=== PATIENT | male | born 1985 | race Caucasian/White ===

== ENCOUNTER 2018-03-30 16:07 | Emergency (ER) | payer SELFPAY ==
[2018-03-30 16:33] VITALS: BP 106/61
[2018-03-30] MEDS ORDERED: DOXYcycline CAP(*) 100 MG PO ONE (17:05)
--- NOTE | 2018-03-30 17:15 | UC ---
Bite Injury/Animal HPI - HPI Summary HPI Summary: 32 yo male with c/o tick bite. He has removed 2 ticks in the last 2 weeks, most recent was 2-3 days ago. He is very concerned about Lyme disease and requesting doxycycline. No recent rash, fever, MARIN, n/v. - History of Current Complaint Chief Complaint: UCSkin Stated Complaint: TICK BITE Time Seen by Provider: 03/30/18 16:55 Pain Intensity: 0 - Allergies/Home Medications Allergies/Adverse Reactions: Allergies Allergy/AdvReac Type Severity Reaction Status Date / Time No Known Allergies Allergy Verified 03/30/18 16:33 Home Medications: Home Medications NK [No Home Medications Reported] 03/30/18 [History Confirmed 03/30/18] PMH/Surg Hx/FS Hx/Imm Hx Previously Healthy: Yes - Surgical History Surgical History: None - Family History Known Family History: Positive: None - no Lyme disease - Social History Alcohol Use: Rare Substance Use Type: None Smoking Status (MU): Never Smoked Tobacco Review of Systems Constitutional: Negative Skin: Negative Eyes: Negative ENT: Negative Respiratory: Negative Cardiovascular: Negative Gastrointestinal: Negative Genitourinary: Negative Motor: Negative Neurovascular: Negative Musculoskeletal: Negative Neurological: Negative Psychological: Negative Is Patient Immunocompromised?: No All Other Systems Reviewed And Are Negative: Yes Physical Exam Triage Information Reviewed: Yes Appearance: Well-Appearing Vital Signs: Initial Vital Signs Temp 97.7 F 03/30/18 16:31 Pulse 64 03/30/18 16:31 Resp 18 03/30/18 16:31 BP 106/61 03/30/18 16:31 Pulse Ox 99 03/30/18 16:31 Vital Signs Reviewed: Yes ENT Exam: Normal Neck exam: Normal Respiratory Exam: Normal Cardiovascular Exam: Normal Abdominal Exam: Normal Musculoskeletal Exam: Normal Neurological Exam: Normal Psychological Exam: Normal Skin: Positive: Other - resolving pink papule over R flank area, no surrounding erythema or other rash Bite Injury Course/Dx - Course Course Of Treatment: This is a 32 yo male with recent tick bite requesting doxycycline. 200 mg dose dispensed. Discussed s/sx of Lyme disease and risk of transmission. - Differential Dx/Diagnosis Differential Diagnosis/HQI/PQRI: Cellulitis, Puncture, Other - Lyme disease Provider Diagnoses: Tick bite Discharge - Sign-Out/Discharge Documenting (check all that apply): Discharge/Admit/Transfer - Discharge Plan Condition: Stable Disposition: HOME Patient Education Materials: Lyme Disease (ED), Tick Bite (ED) Referrals: No Primary Care Phys,NOPCP [Primary Care Provider] - Additional Instructions: Monitor for signs of Lyme disease, your risk of infection is low - Billing Disposition and Condition Condition: STABLE Disposition: HOME
== END 2018-03-30 17:25 | disposition home or self-care (01) ==
LOC: UCEAST 16:07
DX: S30.861A Insect bite (nonvenomous) of abdominal wall, initial encounter (principal); W57.XXXA Bitten or stung by nonvenomous insect and other nonvenomous arthropods, initial encounter; Y93.9 Activity, unspecified; Y92.9 Unspecified place or not applicable
CPT/HCPCS: 99202; A9270-GY; G0463

== ENCOUNTER 2018-12-21 13:49 | Emergency (ER) | payer BC ==
[2018-12-21 14:46] LABS: ABS Basophils 0 10^3/ul (0-0.2); ABS Eosinophils 0.1 10^3/ul (0-0.6); ABS Lymphocytes 1.3 10^3/ul (1.0-4.8); ABS Monocytes 0.6 10^3/ul (0-0.8); ABS Neutrophils 7.5 10^3/ul (1.5-7.7); ABS Nucleated RBC 0 10^3/ul; Eosinophil % 1.1 %; Hematocrit 43 % (42-52); Hemoglobin 15.5 g/dl (14.0-18.0); Mean Corpuscular HGB Conc 36 g/dl (31-36); Mean Corpuscular Hemoglobin 32 pg (27-31); Mean Corpuscular Volume 90 fL (80-94); Mean Platelet Volume 7.5 fL (7.4-10.4); Nucleated Red Blood Cells % 0; Platelet Count 215 10^3/ul (150-450); Red Blood Count 4.84 10^6/ul (4.00-5.40); Red Cell Distribution Width 13 % (10.5-15); White Blood Count 9.5 10^3/ul (3.5-10.8)
[2018-12-21 14:57] LABS: Albumin 4.5 g/dL (3.2-5.2); Albumin/Globulin Ratio 1.7 (1-3); BUN/Creatinine Ratio 18.8 (8-20); C Reactive Protein 11.57 mg/L (<8.01); Calcium 9.4 mg/dL (8.6-10.3); EGFR African American 133.1 (>60); Globulin 2.7 g/dL (2-4); Potassium 4.1 mmol/L (3.5-5.0); Total Bilirubin 0.7 mg/dL (0.2-1.0); Total Protein 7.2 g/dL (6.4-8.9)
[2018-12-21] MEDS ORDERED: NS 0.9% 1000 ML** 1,000 ML IV ONE (15:25)
--- NOTE | 2018-12-21 15:39 | ED ---
Abdominal Pain/Male - HPI Summary HPI Summary: This patient is a 33 year old male presenting to the emergency room with his with a cc of ABD pain that began last night. Since it began it has gotten worse and went from a diffuse pain to localized in RLQ. He rates the pain 3/10 and states it is accompanied by nausea. He denies vomiting and diarrhea. He has not hx of kidney stones and still has is appendix. He denies medical history. - History of Current Complaint Chief Complaint: EDAbdPain Stated Complaint: RT SIDED ABD PAIN Time Seen by Provider: 12/21/18 15:03 Hx Obtained From: Patient Onset/Duration: Lasting Days, Still Present Timing: Constant Severity Initially: Mild Severity Currently: Moderate Pain Intensity: 3 Location: Diffuse, Discrete At: RLQ Radiates: No Associated Signs And Symptoms: Positive: Nausea. Negative: Vomiting, Diarrhea - Allergies/Home Medications Allergies/Adverse Reactions: Allergies Allergy/AdvReac Type Severity Reaction Status Date / Time No Known Allergies Allergy Verified 03/30/18 16:33 PMH/Surg Hx/FS Hx/Imm Hx Endocrine/Hematology History: Denies: Hx Diabetes, Hx Anemia Cardiovascular History: Denies: Hx Atrial Fibrillation, Hx Cardiac Arrest, Hx Congenital Heart Disease, Hx Embolism Respiratory History: Denies: Hx Chronic Bronchitis, Hx Lung Cancer GI History: Denies: Hx Irritable Bowel History: Denies: Hx Acute Renal Failure, Hx Kidney Infection, Hx Kidney Stones Psychiatric History: Denies: Hx Inpatient Treatment Infectious Disease History: Yes Infectious Disease History: Reports: Traveled Outside the [place] in Last 30 Days - [place] - Family History Known Family History: Positive: None - no Lyme disease, Non-Contributory Negative: Respiratory Disease, Seizure Disorder - Social History Lives: With Family Alcohol Use: Rare Substance Use Type: Reports: Marijuana Substance Use Comment - Amount & Last Used: rarely Smoking Status (MU): Never Smoked Tobacco Review of Systems Negative: Fever Positive: Abdominal Pain, Nausea. Negative: Vomiting, Diarrhea All Other Systems Reviewed And Are Negative: Yes Physical Exam - Summary Physical Exam Summary: Appearance: Well appearing, no pain distress Skin: warm, dry, reflects adequate perfusion Head/face: normal Eyes: EOMI, KAILA ENT: normal Neck: supple, non-tender Respiratory: CTA, breath sounds present Cardiovascular: RRR, pulses symmetrical Abdomen: TTP in the RLQ, soft Musculoskeletal: normal, strength/ROM intact Neuro: normal, sensory motor intact, A&Ox3 Triage Information Reviewed: Yes Vital Signs On Initial Exam: Initial Vitals Temp Pulse Resp BP Pulse Ox 97.8 F 84 18 128/72 98 12/21/18 13:49 12/21/18 13:49 12/21/18 13:49 12/21/18 13:49 12/21/18 13:49 Vital Signs Reviewed: Yes Diagnostics - Vital Signs Vital Signs Temp Pulse Resp BP Pulse Ox 12/21/18 14:58 70 99 12/21/18 14:57 67 107/56 100 12/21/18 13:49 97.8 F 84 18 128/72 98 - Laboratory Lab Results: Lab Results 12/21/18 12/21/18 12/21/18 Range/Units 13:42 13:42 13:42 WBC 9.5 (3.5-10.8) 10^3/ul RBC 4.84 (4.00-5.40) 10^6/ul Hgb 15.5 (14.0-18.0) g/dl Hct 43 (42-52) % MCV 90 (80-94) fL MCH 32 H (27-31) pg MCHC 36 (31-36) g/dl RDW 13 (10.5-15) % Plt Count 215 (150-450) 10^3/ul MPV 7.5 (7.4-10.4) fL Neut % (Auto) 78.7 % Lymph % (Auto) 14.0 % [place] % (Auto) 6.0 % Eos % (Auto) 1.1 % Baso % (Auto) 0.2 % Absolute Neuts (auto) 7.5 (1.5-7.7) 10^3/ul Absolute Lymphs (auto) 1.3 (1.0-4.8) 10^3/ul Absolute Monos (auto) 0.6 (0-0.8) 10^3/ul Absolute Eos (auto) 0.1 (0-0.6) 10^3/ul Absolute Basos (auto) 0 (0-0.2) 10^3/ul Absolute Nucleated RBC 0 10^3/ul Nucleated RBC % 0 Sodium 138 (135-145) mmol/L Potassium 4.1 (3.5-5.0) mmol/L Chloride 104 (101-111) mmol/L Carbon Dioxide 30 (22-32) mmol/L Anion Gap 4 (2-11) mmol/L BUN 15 (6-24) mg/dL Creatinine 0.80 (0.67-1.17) mg/dL Est GFR ( Amer) 133.1 (>60) Est GFR (Non-Af Amer) 110.0 (>60) BUN/Creatinine Ratio 18.8 (8-20) Glucose 100 (70-100) mg/dL Lactic Acid 0.8 (0.5-2.0) mmol/L Calcium 9.4 (8.6-10.3) mg/dL Total Bilirubin 0.70 (0.2-1.0) mg/dL AST 23 (13-39) U/L ALT 20 (7-52) U/L Alkaline Phosphatase 63 (34-104) U/L C-Reactive Protein 11.57 H (<8.01) mg/L Total Protein 7.2 (6.4-8.9) g/dL Albumin 4.5 (3.2-5.2) g/dL Globulin 2.7 (2-4) g/dL Albumin/Globulin Ratio 1.7 (1-3) Lipase 21 (11.0-82.0) U/L Result Diagrams: 12/21/18 13:42 12/21/18 13:42 Lab Statement: Any lab studies that have been ordered have been reviewed, and results considered in the medical decision making process. - CT CT ABD/Pelvis CT Interpretation Completed By: Radiologist Summary of CT Findings: 1. Suspect early appendicitis. The appendix is enlarged measuring 10 mm. greatest diameter with wall thickening and some minimal surrounding. inflammatory change. No abscess or obstruction. 2. No other acute disease seen. As above. ED Physician has reviewed this report. Abdominal Pain Fem Course/Dx - Course Assessment/Plan: This patient is a 33 year old male presenting to the emergency room with his with a cc of ABD pain that began last night. Since it began it has gotten worse and went from a diffuse pain to localized in RLQ. He rates the pain 3/10 and states it is accompanied by nausea. He denies vomiting and diarrhea. He has not hx of kidney stones and still has is appendix. He denies medical history. CT ABD/Pelvis reveals, per radiology, 1. Suspect early appendicitis. The appendix is enlarged measuring 10 mm. greatest diameter with wall thickening and some minimal surrounding. inflammatory change. No abscess or obstruction. 2. No other acute disease seen. As above. The patient was given ABX and IV fluids in the ED. Bloodwork and UA obtained. Pt will be admitted to surgery, Dr. Jasso. - Diagnoses Differential Diagnosis/HQI/PQRI: Appendicitis, Diverticulitis, Pancreatitis, Renal Colic, Ureteral Stone Provider Diagnoses: Appendicitis - Provider Notifications Discussed Care Of Patient With: Bolivar Jasso Time Discussed With Above Provider: 19:36 Instructed by Provider To: Other - He has agreed to see the patient and he will admitt the patient. Discharge - Sign-Out/Discharge Documenting (check all that apply): Patient Departure - admitted - Discharge Plan Condition: Fair Disposition: ADMITTED TO [facility] Referrals: No Primary Care Phys,NOPCP [Primary Care Provider] - - Billing Disposition and Condition Condition: FAIR Disposition: Admitted to [facility] - Attestation Statements Document Initiated by Eugenia: Yes Documenting Scribe: Veto Pal Provider For Whom Eugenia is Documenting (Include Credential): Walter Guerra MD Scribe Attestation: Veto Wolf , scribed for Walter Guerra MD on 12/21/18 at 2007. Scribe Documentation Reviewed: Yes Provider Attestation: The documentation as recorded by the Veto marcelo accurately reflects the service I personally performed and the decisions made by Walter faria MD Status of Scribe Document: Viewed
[2018-12-21] MEDS ORDERED: Iohexol 300* (CONTRAST) 10 ML SDV IV ONE (15:47)
[2018-12-21 16:54] LABS: Urine Appearance Clear; Urine Bilirubin Negative (Negative); Urine Blood Negative (Negative); Urine Color Yellow; Urine Glucose Negative (Negative); Urine Ketones Negative (Negative); Urine Nitrite Negative (Negative); Urine Protein Negative (Negative); Urine Urobilinogen Negative (Negative)
[2018-12-21] MEDS ORDERED: Piperacillin/Tazobac ADVAN(*) 3.375 GM in NS 0.9% 100 ML* 100 ML IVPB ONE (19:29)
--- NOTE | 2018-12-21 20:59 | PN ---
Progress Note - Progress Note Date of Service: 12/21/18 Note: Dr Jasso saw the patient offered him admission the patient declined. He also states there is a chance the patient does not even have appendicitis. The patient was given strict return instructions. Pt will be discharged home
[2018-12-21 21:09] VITALS: BP 123/79
--- NOTE | 2018-12-21 23:47 | CONS ---
CONSULTATION REPORT: DATE OF CONSULT: 12/21/18 REFERRING PROVIDER: Dr. Guerra, Emergency Room. REASON FOR CONSULT: Right-sided abdominal pain. HISTORY OF PRESENT ILLNESS: Mr. Aj Scott is a healthy 33-year-old gentleman , who presented to the emergency room earlier today after he awoke in the middle of night with some generalized abdominal discomfort. He said it was associated with some slight nausea, but that resolved. He went back to sleep, noted the pain became more prominent in the right mid to lower abdomen over the course of the day and he came into the emergency room a little before 2 o'clock this afternoon. He had no fevers, shakes, or chills. He has had an excellent appetite since arriving here at the hospital. He said the pain is improving, never received any pain medicine in the emergency room. He was noted to have some mild tenderness in the right side of the abdomen on physical exam. He underwent a CT scan of the abdomen and pelvis. I did review these images This was done with contrast with oral and IV contrast. This was read by the radiologist as suspecting early acute appendicitis, some dilation of the appendix with concern for some periappendiceal inflammation. The appendix did appear to be retrocecal. A surgical consultation was obtained. PAST MEDICAL HISTORY: Unremarkable. PAST SURGICAL HISTORY: None. MEDICATIONS: None. ALLERGIES: He has no known drug allergies. SOCIAL HISTORY: He is . He lives with his . He is self-employed in real estate and development. He does not use tobacco. He drinks alcohol. He is a vegetarian. REVIEW OF SYSTEMS: As per above. He has not had any diarrhea. There has been no blood per rectum. He has had no vomiting. He has no back pain. He has never had chronic abdominal discomfort. PHYSICAL EXAM: Temperature 99.2, pulse 54, blood pressure 123/79. In general, well-developed, slender male, appears healthy, in no apparent distress and is quite comfortable. HEENT: Sclerae are anicteric. Oral mucosa is slightly dry. Lungs were clear to auscultation with normal respiratory effort. Heart has regular rate and rhythm without murmurs, rubs, or gallops. Abdomen is soft and nondistended. No prior surgical incisions are appreciated. No hernias. He had normoactive bowel sounds throughout. I appreciate no localizing tenderness , although initially he had some right lower quadrant pain. This is resolved on deeper palpation. He moves around the gurney quite easily and there is no voluntary guarding as well. LABORATORY DATA: Laboratory workup included a white blood cell count of 9500 without differential. Electrolytes, BUN and creatinine were all within normal limits. He had a C-reactive protein mildly elevated at 11.57. Urinalysis was unremarkable. IMPRESSION AND PLAN: Right lower quadrant abdominal pain. This is improved since he has been in the emergency room. It should be noted, however, that the patient had received a dose of IV Zosyn by the emergency room physician in response to the reading on the CT scan about 30 minutes before I had seen him. He does state that his pain is improved over the course of the day since he has been in the emergency room and he has a ravenous appetite and would like to eat. He moves around out of the gurney without appearing to be uncomfortable. I reviewed the CT scan findings with both him and his . His appendix is most likely retrocecal and certainly could account for some atypical presentation of acute appendicitis, but it is difficult to determine if there is a significant amount of inflammation and/or wall thickness on the CT scan. Certainly, there is no evidence of perforation or extraluminal air/fluid. I discussed options with him especially in light of his clinical appearance including the physical examination. One is to consider laparoscopy this evening , although I do not feel that it is an urgent need as I feel we should let this process evolve as it is relatively early in the course of his illness and in the next 12 to 24 hours, I would think that he would become progressively more tender and/or sick thus prompting laparoscopic appendectomy. I gave him the option and this was my recommendation to be admitted tonight for IV hydration and observation and a repeat white blood cell count in the morning. Certainly if his white blood cell count is elevated tomorrow and if he is having persistent or worsening pain, then I would recommend we proceed with a laparoscopic appendectomy. After our discussion of these possible options including the discussion about treating him simply with oral antibiotics and not even considering surgery, he would like to go home tonight, see how he feels and my plan is that I will call him or he will call the office sooner first thing in the morning if his pain is worsening or he has new symptoms and he would present back to the emergency room and he can be reevaluated. As mentioned above, we did discuss an oral outpatient regimen of antibiotics for treatment of acute appendicitis which has been documented in the literature. I guess at this point, however, I am not convinced that he has acute appendicitis and I certainly would like to try to avoid 10 days of antibiotics and the inherent risks. After our discussion about the risks, benefits, and alternatives with all of these treatments, he would be discharged to home and I will contact him and I will communicate with him early in the morning and see how he is feeling and we will proceed accordingly. Also, told him obviously if he has worsening pain in the middle of the night he need to return to the emergency room. [id number]/[facility] #: [id number] DANIAL
== END 2018-12-21 21:20 | disposition home or self-care (01) ==
LOC: ED 13:49
DX: K37 Unspecified appendicitis (principal); R11.0 Nausea
CPT/HCPCS: 36415; 74177; 80053; 81003; 83605; 83690; 85025; 86140; 96365; 99284; J2543; Q9967

== ENCOUNTER → 2018-12-22 10:20 | Day surgery (SDC) | payer BC ==
[~2018-12-22 10:20] MED LIST: Bupivacaine 0.5% W/EPI SDV* 30 ML VIAL ONE; Dexamethasone IV* 4 MG/ML 1 ML (4 MG) ONE; DiMENhydriNATE IV* 50 MG/ML VIAL IV PUSH PRN; Esmolol* 10 MG/ML 10 ML (100 mg) ONE; HYDROmorphone INJ1* 1 MG/ML SYRINGE IV PRN; Ketorolac INJ* 30 MG/ML 1 ML VIAL ONE; Metoprolol Tartrate IV* 1 MG/ML 5 ML VIAL ONE; Midazolam* 1 MG/ML 2 ML VIAL (2 MG) ONE; Naloxone* 0.4 MG/ML 1 ML VIAL IV PRN; Ondansetron INJ* 2 MG/ML VIAL ONE; Piperacillin/Tazobactam VIAL*) 3.375 GM VIAL (COMPD & OVERRIDE) IVPB ONE; Rocuronium* 10 MG/ML VIAL ONE; Sugammadex * 200 MG/2 ML VIAL IV PUSH ONE; ZOSYN 3.375 GM x ONE DOSE over 30 miuntes IVPB; fentaNYL* 50 MCG/ML 2 ML VIAL (100 MCG VIAL) IV PRN; fentaNYL* 50 MCG/ML 2 ML VIAL (100 MCG VIAL) ONE; hydrALAZINE IV* 20 MG/ML VIAL ONE; oxyCODONE/Acetamin 5/325 MG* TAB PO ONE
[2018-12-22 15:55] VITALS: BP 110/66
--- NOTE | 2018-12-23 00:06 | OP ---
DATE OF OPERATION: 12/22/18 - [facility] DATE OF : 81 SURGEON: Bolivar Jasso MD EVENTS INTERN: None. ANESTHESIOLOGIST: Dr. Evans. ANESTHESIA: General with local. PRE-OP DIAGNOSIS: Right lower quadrant abdominal pain, acute appendicitis. POST-OP DIAGNOSIS: Right lower quadrant abdominal pain, acute appendicitis. OPERATIVE PROCEDURE: Laparoscopic appendectomy. WOUND CLASSIFICATION: 3. COMPLICATIONS: None. DRAINS: None. SPECIMEN: Appendix. FINDINGS: The appendix was located lateral to the cecum but was intraperitoneal. It was mildly edematous, but no evidence of suppurative inflammation, gangrene, or perforation. The cecum, right colon, and terminal ileum also appeared to be normal. BRIEF HISTORY: Mr. Aj Scott is a healthy 33-year-old gentleman presented to the emergency room last night with about 16 hours of abdominal discomfort. This initially started off with some nausea, then some generalized abdominal pain, which was more localized in the right [id number]-vriis abdomen. He presented to the emergency room, he was noted to be afebrile. His white count was normal. He had some mild tenderness in the right lower quadrant. While in the emergency room, his pain improved over several hours while he was awaiting a CT scan. He did undergo a CAT scan of the abdomen and pelvis which was read last night as a mildly dilated appendix with some periappendiceal inflammation consistent with possible early acute appendicitis. By the time he was seen in surgical consultation, his pain was pretty much resolved and discussion was had and I had a discussion regarding management. Clinically, he was much improved and the CT scan findings were certainly not completely convincing for acute appendicitis and we discussed options of observation, appendectomy, or treating him with antibiotics. I initially was hesitant to treat with antibiotics, as I was not certain if the diagnosis was truly acute appendicitis and did not want to have risks of antibiotics and he agreed with this. We discussed proceeding with laparoscopy versus observation over the next 12 hours which I recommended to see if obviously he had recurrence and worsening of his abdominal pain, then clearly would require an appendectomy. After our long discussion, he did not want to be admitted overnight, but felt comfortable going home because he did have an appetite, was tolerating liquids and we decided to follow him for the next 12 to 16 hours and he was discharged home and I contacted him early this morning. I did also review the CT scan with the separate radiologist who felt that these were findings fairly convincing for early acute appendicitis as well. After further discussion with the patient today, we discussed treating him with oral antibiotics with a possible interval at appendectomy versus proceeding with appendectomy. After discussing the risks, benefits, and alternatives including bleeding, infection, intraabdominal abscess formation, injury to peritoneal and retroperitoneal structures, possibility of other indicated surgical procedures as well as the risks of anesthesia, recovery times and hospital stays were all explained, he would like to proceed with an appendectomy today. DESCRIPTION OF PROCEDURE: Written informed consent was obtained, preoperative antibiotics were administered, the abdomen was marked with indelible ink. He was taken to the operating room, placed in the supine position. Sequential compression devices and a warming blanket were applied. General anesthesia was administered. The abdomen was prepped and draped in usual sterile fashion. Time-out verification was completed. A small vertical incision was made just below the umbilicus at the midline. The peritoneal cavity was entered under direct vision. A 12-mm blunt port was inserted and the abdomen was insufflated to 15 mmHg. Under direct vision, a 5-mm port was placed in the left lower abdominal wall and the appendix was visualized. It was somewhat lateral and somewhat more in the middle portion of the abdomen. Thus, I placed a second 5-mm port in the right upper quadrant of the abdominal wall right in the usual suprapubic position. The intraperitoneal was brought up into view. There may have been some mild edema to the wall, some hyperinjection, but there was no evidence of suppuration , fluid, abscess, gangrene, or perforation and the findings were not particularly remarkable. The mesoappendix was taken sequentially with LigaSure device down to the base of the appendix which was normal. EndoGIA alonso load of a 45-mm staple was used to divide the appendix. This was placed in an EndoCatch bag and brought out through the umbilical incision. The staple line was intact and hemostasis was assured. I irrigated the right lower quadrant and there were no other abnormal findings. All ports were removed under direct vision of the camera. There was no abdominal wall bleeding. The umbilical fascia was closed with several interrupted 0 Vicryl sutures. The skin at all 3 incisions was approximated with subcuticular 4-0 Vicryl suture. Steri-Strips were applied. The patient tolerated the procedure well and was taken to the recovery room in stable condition. [id number]/[facility] #: [id number] DANIAL
== END | disposition home or self-care (01) ==
LOC: OR 10:20
PROVIDERS: ATTEND Surgery
DX: K37 Unspecified appendicitis (principal)
CPT/HCPCS: 88304; C1776; J0360; J1100; J1885; J2250; J2405; J2543; J3010; J3490